=== PATIENT | female | born 1965 | race Hispanic/Latino ===

== ENCOUNTER 2018-05-31 01:12 | Emergency (ER) | payer BC, OTHER ==
[2018-05-31] MEDS ORDERED: HYDROCODONE/ACETAMINOPHEN 5/325 MG TAB ONE (02:54)
[2018-05-31 03:11] LABS: BASOPHILS % (AUTO) 0.7 % (0.0-5.0); EOSINOPHILS % (AUTO) 5.5 % (0.0-8.0); HEMATOCRIT 42.2 % (36-48); LYMPHOCYTES % (AUTO) 23.7 % (21.0-51.0); MEAN CORPUSCULAR HEMOGLOBIN 30.4 pg (27.0-33.0); MEAN CORPUSCULAR HGB CONC 33.4 g/dL (32.0-36.0); MEAN CORPUSCULAR VOLUME 91.1 fL (79-99); MONOCYTES % (AUTO) 7.7 % (3.0-13.0); NEUTROPHILS % (AUTO) 62.4 % (40.0-77.0); PLATELET COUNT (AUTO) 292 K/uL (130-400); RED BLOOD CELL COUNT(AUTO) 4.63 MIL/uL (4.00-5.50); RED CELL DISTRIBUTION WIDTH 13.7 % (11.0-15.5); WHITE BLOOD COUNT (AUTO) 8.5 K/uL (4.8-10.8)
[2018-05-31 03:23] LABS: CREATININE 0.7 mg/dL (0.5-1.5); POTASSIUM 5.1 mmol/L (3.5-5.1)
[2018-05-31 03:26] LABS: ALBUMIN 3.6 g/dL (3.5-5.0); BILIRUBIN,TOTAL 0.4 mg/dL (0.2-1.0); TOTAL PROTEIN, SERUM 7.8 g/dL (6.0-8.3)
== END 2018-05-31 04:16 | disposition home or self-care (01) ==
LOC: EDH 01:12
DX: F41.9 Anxiety disorder, unspecified (principal); M54.6 Pain in thoracic spine; I10 Essential (primary) hypertension; E07.9 Disorder of thyroid, unspecified
CPT/HCPCS: 36415; 71045; 80053; 82550; 84484; 85025; 93005

== ENCOUNTER 2023-01-30 05:35 | Emergency (ER) | payer BC, OTHER ==
[~2023-01-30] VITALS: Ht 157.5 cm; Wt 140.6 kg
[2023-01-30] MEDS ORDERED: ROCURONIUM BROMIDE 10MG/1ML 5ML VL IV ONE (05:36)
[2023-01-30] MEDS ORDERED: ETOMIDATE 20MG VIAL IVP ONE (05:36)
[2023-01-30 05:58] LABS: BASOPHILS % (AUTO) 0.1 % (0.0-5.0); HEMATOCRIT 42.3 % (36-48); LYMPHOCYTES % (AUTO) 6.7 % (21.0-51.0); MEAN CORPUSCULAR HEMOGLOBIN 29.7 pg (27.0-33.0); MEAN CORPUSCULAR HGB CONC 33.3 g/dL (32.0-36.0); MEAN CORPUSCULAR VOLUME 89.1 fL (79-99); MONOCYTES % (AUTO) 6.6 % (3.0-13.0); NEUTROPHILS % (AUTO) 86.1 % (40.0-77.0); PLATELET COUNT (AUTO) 329 K/uL (130-400); RED BLOOD CELL COUNT(AUTO) 4.75 MIL/uL (4.00-5.50); RED CELL DISTRIBUTION WIDTH 13.3 % (11.0-15.5)
[2023-01-30] MEDS ORDERED: DEXAMETHASONE SOD PHOSPHATE 10MG/ML 1ML VIAL ONE (05:59)
[2023-01-30] MEDS ORDERED: SOLU-MEDROL 125MG VIAL IVP ONE (06:00)
[2023-01-30] MEDS ORDERED: DEXAMETHASONE SOD PHOSPHATE 4 MG/ML 1ML VIAL IVP ONE (06:00)
[2023-01-30] MEDS ORDERED: PROPOFOL 10 MG/ML 20ML VIAL IV SCH (06:00)
[2023-01-30] MEDS ORDERED: PROPOFOL 10 MG/ML 20ML VIAL IV ONE (06:00)
[2023-01-30] MEDS: MIDAZOLAM HCL 50 MG in 0.9%NACL 50ML 50 ML IV SCH ×2 (06:00→09:00)
[2023-01-30] MEDS ORDERED: MAGNESIUM 2GM PREMIX 50ML 50 ML IV ONE (06:00)
[2023-01-30] MEDS ORDERED: MAGNESIUM 2GM PREMIX 50ML 50 ML IV SCH (06:00)
[2023-01-30] MEDS ORDERED: PROPOFOL 1000 MG/100 ML 100 ML IV ONE (06:17)
[2023-01-30] MEDS ORDERED: PROPOFOL 1000 MG/100 ML 100 ML IV SCH (06:30)
[2023-01-30] MEDS ORDERED: CEFTRIAXONE 2GM VIAL IVPB ONE (06:30)
[2023-01-30 06:32] LABS: APPEARANCE,URINE CLOUDY (CLEAR); BILIRUBIN,URINE NEGATIVE (NEGATIVE); COLOR,URINE LIGHT-YELLOW (YELLOW); GLUCOSE, URINE (UA) NEGATIVE (NEGATIVE); KETONES,URINE NEGATIVE (NEGATIVE); LEUKOCYTE ESTERASE ,URINE 75 Leu/uL (NEGATIVE); NITRATE,URINE NEGATIVE (NEGATIVE); OCCULT BLOOD,URINE NEGATIVE (NEGATIVE); PH,URINE 5.5 (5.0-8.0); PROTEIN,URINE 10 mg/dL (NEGATIVE); UROBILINOGEN,URINE 0.2 mg/dL (0.2-1.0)
[2023-01-30 06:33] LABS: B-TYPE NATRIURETIC PEPTIDE 161 pg/mL (0-100)
[2023-01-30 06:36] LABS: ALBUMIN 3.6 g/dL (3.5-5.0); POTASSIUM 3.7 mmol/L (3.5-5.1); TOTAL PROTEIN, SERUM 7.9 g/dL (6.0-8.3)
[2023-01-30 06:43] LABS: ABG BASE EXCESS -2.1 mmol/L (-2.0-3.0); ABG HCO3 22.3 mmol/L (21.0-28.0); ABG OXYGEN SATURATION 96.7 % (95.0-99.0); ABG PCO2 37 mmHg (32-45)
[2023-01-30 06:45] LABS: BACTERIA,URINE RARE /HPF (None Seen); MUCUS,URINE RARE LPF (None Seen); SQUAMOUS EPITHELIAL CELL,UR MANY /HPF (0-2)
[2023-01-30 10:17] LABS: ABG BASE EXCESS 0.5 mmol/L (-2.0-3.0); ABG HCO3 25.2 mmol/L (21.0-28.0); ABG OXYGEN SATURATION 99.6 % (95.0-99.0); ABG PCO2 41 mmHg (32-45)
[2023-01-30 13:40] VITALS: BP 121/72
== END 2023-01-30 13:48 | disposition home or self-care (01) ==
LOC: EDH 05:35
DX: R06.03 Acute respiratory distress (principal); N39.0 Urinary tract infection, site not specified; I16.1 Hypertensive emergency; J93.82 Other air leak; E89.0 Postprocedural hypothyroidism; I10 Essential (primary) hypertension
CPT/HCPCS: 82550; 84484; 82435; 82947; 84132; 84295; 80053; 82803 ×2; 83880; 85025; 85018; 87040 ×2; 87088; 87804 ×2; 83605 ×2; 81001; 36415; 87635; 71045; 96365; 99291; 96375; 96367; 93005 ×2; 31500; 36600 ×2; C9803; J3475; J1100; J2930; J0696; J3490 ×2; J2704 ×3; A9900; 94002

== ENCOUNTER 2023-03-06 20:06 | Emergency (ER) | payer BC ==
[~2023-03-06] VITALS: Ht 157.5 cm; Wt 141.1 kg
[2023-03-06 21:14] VITALS: BP 158/84; PULSE 96; RESP 18; O2SAT 98
== END 2023-03-06 21:28 | disposition home or self-care (01) ==
LOC: EDH 20:06
DX: I10 Essential (primary) hypertension (principal); T50.905A Adverse effect of unspecified drugs, medicaments and biological substances, initial encounter; Y92.89 Other specified places as the place of occurrence of the external cause; E03.9 Hypothyroidism, unspecified; Z98.890 Other specified postprocedural states
CPT/HCPCS: 99281

== ENCOUNTER 2023-03-19 04:15 | Emergency (ER) | payer BC ==
[~2023-03-19] VITALS: Ht 157.5 cm; Wt 141.5 kg
[2023-03-19 05:03] LABS: BASOPHILS # (AUTO) 0.05 K/uL (0.00-0.20); BASOPHILS % (AUTO) 0.6 % (0.0-5.0); EOSINOPHILS # (AUTO) 0.58 K/uL (0.00-0.70); EOSINOPHILS % (AUTO) 6.8 % (0.0-8.0); HEMATOCRIT 44.2 % (36-48); IMMATURE GRANULOCYTE ABSOLUTE 0.04 K/uL (0-1); LYMPHOCYTES # (AUTO) 2.3 K/uL (1.0-4.8); LYMPHOCYTES % (AUTO) 27.1 % (21.0-51.0); MEAN CORPUSCULAR HGB CONC 32.4 g/dL (32.0-36.0); MEAN CORPUSCULAR VOLUME 92.7 fL (79-99); MONOCYTES # (AUTO) 0.8 K/uL (0.1-1.0); MONOCYTES % (AUTO) 9.6 % (3.0-13.0); NEUTROPHILS # (AUTO) 4.8 K/uL (1.8-7.7); NEUTROPHILS % (AUTO) 55.4 % (40.0-77.0); PLATELET COUNT (AUTO) 303 K/uL (130-400); RED BLOOD CELL COUNT(AUTO) 4.77 MIL/uL (4.00-5.50); RED CELL DISTRIBUTION WIDTH 13.1 % (11.0-15.5); WHITE BLOOD COUNT (AUTO) 8.6 K/uL (4.8-10.8)
[2023-03-19 05:09] LABS: CREATININE 0.8 mg/dL (0.5-1.5); POTASSIUM 4.1 mmol/L (3.5-5.1)
[2023-03-19] MEDS ORDERED: IPRATROPIUM/ALBUTEROL SULFATE 3 ML SOLUTION IH ONE ×2 (05:11→05:30)
[2023-03-19 05:13] LABS: ALBUMIN 3.7 g/dL (3.5-5.0); BILIRUBIN,TOTAL 0.5 mg/dL (0.2-1.0); MAGNESIUM 1.8 mg/dL (1.80-2.40); TOTAL PROTEIN, SERUM 7.9 g/dL (6.0-8.3)
[2023-03-19 05:17] LABS: INFLUENZA TYPE A Negative For Type A (NEGATIVE); INFLUENZA TYPE B Negative For Type B (NEGATIVE)
[2023-03-19 05:19] LABS: SARS-CoV-2, RNA, NAAT POSITIVE SARS CoV-2 (NEGATIVE)
[2023-03-19 05:22] VITALS: PULSE 84; RESP 20
[2023-03-19] MEDS ORDERED: SOLU-MEDROL 125MG VIAL IVP ONE (05:30)
[2023-03-19 05:43] VITALS: BP 130/40; PULSE 110; RESP 18; O2SAT 100
[2023-03-19 06:45] LABS: ABG BASE EXCESS 4.4 mmol/L (-2.0-3.0); ABG HCO3 29.4 mmol/L (21.0-28.0); ABG OXYGEN SATURATION 96.5 % (95.0-99.0); ABG PCO2 45 mmHg (32-45); ABG PH 7.432 (7.35-7.450); CARBON MONOXIDE 0.6; HHb 3.5; VENT MODE, BG RA (ROOM AIR)
[2023-03-19] MEDS ORDERED: PRED20TA3 PO (06:46)
[2023-03-19] MEDS ORDERED: ALBU90AE2 IH (06:46)
[2023-03-19] MEDS ORDERED: NIRM1TAB PO (06:47)
[2023-03-19 06:48] LABS: ABG BASE EXCESS 0.2 mmol/L (-2.0-3.0); ABG HCO3 24.4 mmol/L (21.0-28.0); ABG OXYGEN SATURATION 96.8 % (95.0-99.0); ABG PCO2 38 mmHg (32-45); ABG PH 7.424 (7.35-7.450); CARBON MONOXIDE 0.9; HHb 3.2; PO2, ARTERIAL BG 80.7 mmHg (83.0-108.0); VENT MODE, BG RA (ROOM AIR)
== END 2023-03-19 07:31 | disposition home or self-care (01) ==
LOC: EDH 04:15
DX: U07.1 COVID-19 (principal); J45.909 Unspecified asthma, uncomplicated; E03.9 Hypothyroidism, unspecified; I10 Essential (primary) hypertension; Z79.52 Long term (current) use of systemic steroids; Z98.890 Other specified postprocedural states
CPT/HCPCS: 99284; 96374; 71045; 87635; 82947 ×2; 82435 ×2; 83735; 84484; 84132 ×2; 84295 ×2; 80053; 82803 ×2; 85025; 85018 ×2; 87804 ×2; 83605 ×2; 36415; 70360; 93005; 36600; 94640; C9803; J2930